=== PATIENT | female | born 1995 | race Caucasian/White ===

== ENCOUNTER 2016-08-27 18:41 | Emergency (ER) | payer BC ==
[2016-08-27 19:25] VITALS: BP 116/68; PULSE 71; TEMP 98.2; BMI 24.1
--- NOTE | 2016-08-27 21:31 | PDOC ---
Suture Removal/Wound Check HPI - History of Present Illness Chief Complaint: Suture/Staple Removal(Here) Stated Complaint: SUTURE REMOVAL/POSS INFECTION Time Seen by Provider: 08/27/16 21:31 History Source: Yes: Patient Exam Limitations: Yes: No Limitations Treated at: [facility] ED - Previous ED Treatment Type of procedure performed on last visit: Yes: Laceration Repair Past History - Past Medical History Allergies/Adverse Reactions: Allergies No Known Allergies Allergy (Verified 08/27/16 19:17) Home Medications: Ambulatory Orders NK [No Known Home Medication] 08/14/16 Surgical History: Yes: No Surgical History - Immunization History Tetanus Status: Less than 5 years - Social History Smoking Status: Never smoked Suture Removal/Wound Check PE - Physical Exam Laceration/Wound Check Symptoms: reports: None Current Severity Level: None Maximum Severity Level: None Location of Laceration/Wound: right: Hand (left thumb) *Review of Systems - Review of Systems Able to Perform ROS?: Yes All Other Systems: Reviewed and Negative Progress Note - Progress Note Progress Note: LEft thumb lac sutured x13d ago Neg drainage neg pain neg redness *DC/Admit/Observation/Transfer Diagnosis at time of Disposition: Encounter for removal of sutures - Patient Instructions Printed Discharge Instructions: DI for Suture Removal
== END 2016-08-27 22:00 | disposition home or self-care (01) ==
LOC: JER 18:41
DX: Z48.02 Encounter for removal of sutures (principal)
CPT/HCPCS: 99281-25